=== PATIENT | female | born 1985 | race African-American/Black ===

== ENCOUNTER 2018-12-25 10:50 | Emergency (ER) | payer MEDICAID ==
[~2018-12-25] VITALS: Ht 165.1 cm; Wt 74.0 kg
[2018-12-25] MEDS ORDERED: IBUPROFEN 600MG TABLET PO ONE (13:00)
[2018-12-25 14:50] VITALS: BP 112/65
== END 2018-12-25 15:00 | disposition home or self-care (01) ==
LOC: ER 10:50
DX: S93.491A Sprain of other ligament of right ankle, initial encounter (principal); Z98.890 Other specified postprocedural states; X58.XXXA Exposure to other specified factors, initial encounter; Y93.89 Activity, other specified; Y92.89 Other specified places as the place of occurrence of the external cause
CPT/HCPCS: 73610; 99283